=== PATIENT | female | born 1995 ===

== ENCOUNTER 2020-04-22 09:49 | Inpatient (IN) | payer OTHER ==
[2020-04-22] MEDS ORDERED: ELECTROLYTE-148 SOLN 1,000 ML IV SCH (10:15)
[2020-04-22] MEDS ORDERED: CITRIC ACID/SODIUM CITRATE 30 ML UNIT-DOSE CUP PO ONE (10:34)
[2020-04-22 10:47] LABS: BASO % 0.2 % (0-2.0); EOS % 0.5 % (0-4.5); HEMATOCRIT 34.7 % (32.4-45.2); HEMOGLOBIN 11.6 GM/dL (10.7-15.3); LYMPH % 20.4 % (8-40); MCH 29.8 pg (25.7-33.7); MCHC 33.3 g/dl (32.0-36.0); MEAN CELL VOLUME 89.3 fl (80-96); MEAN PLT VOLUME 7.5 fl (7.5-11.1); MONO % 8.2 % (3.8-10.2); NEUT % 70.7 % (42.8-82.8); PLATELET COUNT 233 K/MM3 (134-434); RBC 3.88 M/mm3 (3.60-5.2); RDW 14.2 % (11.6-15.6); WHITE BLOOD COUNT 6.5 K/mm3 (4.0-10.0)
[2020-04-22 10:53] LABS: INR 0.87 (0.83-1.09); PROTHROMBIN TIME (PATIENT) 10.2 SEC (9.7-13.0)
[2020-04-22 10:55] LABS: ACTIVATED PTT 27.7 SECONDS (25.2-36.5)
--- NOTE | 2020-04-22 11:04 | HP ---
Past Medical History - Admission Chief Complaint: admited fpor repeat cessarian section at 39+3 w gestation - Past Medical History ...: 3 ...Para: 1 ...Living Children: 1 ... Weeks Gestation by Dates: 39 ...EDC by Dates: 04/26/20 Additional OB History: pervious Cessarian sectionx 1 in [facility] , no records available - Past Surgical History Hx Myomectomy: No Hx Transabdominal Cerclage: No Additional Surgical History: Cessarian section x1 - Smoking History Smoking history: Never smoked - Alcohol/Substance Use Hx Alcohol Use: No History of Substance Use: reports: None Home Medications - Allergies Allergies/Adverse Reactions: Allergies Allergy/AdvReac Type Severity Reaction Status Date / Time No Known Allergies Allergy Verified 04/22/20 10:13 - Home Medications Home Medications: Ambulatory Orders Pnv No.95/Ferrous Fum/Folic AC [ Formula] 1 each PO DAILY 04/22/20 Physical Exam - Maternity - Labs Lab Results: CBC, BMP 04/22/20 10:10
[2020-04-22 11:08] VITALS: BMI 29.0
--- NOTE | 2020-04-22 11:09 | PN ---
Progress Note (short form) - Note Progress Note: 25 y old p1 admited at 39+3 w gestation for repeat C/s EDC 04/26 +FM . no vaginal bleeding , no ROM . EFW 2900 GM . FHR 140/ min + MOD. variability n. No CTX . risk and benefit of repeat C/S explained , consent obtained via chief internal auditor .including , but not limited to infection , bleeding , injury to pelvic and /or abdominal organs .all Pt,s questions were answered
[2020-04-22 11:11] LABS: BLOOD UREA NITROGEN 7.1 mg/dL (7-18); CALCIUM 8.5 mg/dL (8.5-10.1); CREATININE 0.4 mg/dL (0.55-1.3); POTASSIUM 3.9 mmol/L (3.5-5.1)
[2020-04-22] MEDS ORDERED: morphine SULFATE/PF 0.5 MG/ML (2cc Syringe - QUVA) ONE (11:47)
[2020-04-22] MEDS ORDERED: IBUPROFEN 800 MG/8 ML IJ IVPB PRN (13:04)
[2020-04-22] MEDS ORDERED: oxyCODONE HCL 5 MG TABLET PO PRN (13:04)
[2020-04-22] MEDS ORDERED: BENZOCAINE 28 GM HEMORRHOIDAL OINTMENT RC PRN (13:04)
[2020-04-22] MEDS ORDERED: diphenhydrAMINE HCL 25 MG CAPSULE (FP) PO PRN (13:04)
[2020-04-22] MEDS ORDERED: WITCH HAZEL 50% (TUCKS) 40 PAD/JAR PAD TP PRN (13:04)
[2020-04-22] MEDS ORDERED: METHYLERGONOVINE MALEATE 0.2 MG/1 ML AMP IM PRN (13:04)
[2020-04-22] MEDS ORDERED: BENZOCAINE 20% 57 GM BOTTLE TP PRN (13:04)
[2020-04-22 13:12] LABS: CORD HCO3 22.3 mmHg (20-29); CORD PCO2 54.8 mmHg (30-78); CORD pH 7.228 (7.14-7.44)
[2020-04-22 13:15] LABS: CORD BASE EXCESS -6.4 mmol/L (0-2); CORD PCO2 42.7 mmHg (30-78); CORD pH 7.288 (7.14-7.44)
[2020-04-22] MEDS ORDERED: DEXTROSE 5%-LACTATED RINGERS 1,000 ML IV SCH (13:15)
[2020-04-22] MEDS ORDERED: OXYTOCIN 20 UNITS in 0.9% NS 20 UNIT/1,000 ML INFUS.BAG IV SCH (13:15)
--- NOTE | 2020-04-22 13:19 | OP ---
Operative Note - Note: Operative Date: 04/22/20 Pre-Operative Diagnosis: p1 at 39+3 w gesttion for repeat LTCS Operation: Repeat LTCS Findings: full term female 9/9 at 1 and 5 min in ROT position . 9/9 at 1 and 5 min Ovary and tubes are grossely NL Post-Operative Diagnosis: Same as Pre-op Surgeon: Deena Ty Anesthesia: Spinal Estimated Blood Loss (mls): 600 Drains & Tubes with Location: wharton 100 ML Operative Report Dictated: Yes
--- NOTE | 2020-04-22 13:51 | OP ---
DATE OF OPERATION: 04/22/2020 PREOPERATIVE DIAGNOSIS: Patient is 25 years old, 3, para 1 admitted at 39 +3 days for repeat lower transverse section. Patient had previous in [place]. No records available. Options discussed with the patient and patient opted for repeat section. Procedure explained. The consent was obtained. Risks and benefits explained. Risk of possible bleeding, infection, perforation, injury to bowel or other pelvic organs explained to the patient. Patient understood the risks through the child attendant and signed the consent and witnessed. PROCEDURE: Repeat lower transverse section. SURGEON: Deena Ty MD HALL WORKER: JUANCARLOS Stock ESTIMATED BLOOD LOSS: 600 mL. URINE OUTPUT: 100 mL clear. IV FLUID GIVEN: Lactated Ringer's 1200 mL. ANESTHESIA: Spinal anesthesia. PREOPERATIVE ANTIBIOTIC: Patient received a gram of Ancef preoperatively. PROCEDURE: Patient was taken to the operating room. In the dorsal position under spinal anesthesia skin Pfannenstiel incision made with a scalpel, carried to underlying layer of fascia. Fascia incised in the midline, extended bilaterally using Bird scissors. The fascia was from underlying layer of muscle superior and inferiorly using Bird scissors. The muscle and the peritoneum were entered bluntly. Lower uterine segment was identified. Uterovesical peritoneum was incised and extended bilaterally. Lower uterine segment was incised and extended bilaterally. Membrane ruptured with clear fluid. The head and nose were delivered atraumatically. Suctioning of the mouth and nose was done followed by delivery of the anterior shoulder, posterior shoulder, whole body. The cord was clamped and cut and the was handed to the awaiting landscape drafter. Following that, cord gas was obtained. Cord blood was obtained. The placenta was delivered complete, intact, spontaneous. So, the findings are full-term female , 9 at one minute and 9 at five minutes in right occipital transverse position. Ovary and tubes bilateral grossly normal. The placenta intact complete was noted too, and the was handed to the awaiting landscape drafter and transferred to the nursery. The uterine cavity was cleared from all the debris and the bleeding. The lower uterine segment was closed in 2 layers using 0 Vicryl continuous locked fashion. The peritoneum and gutter were cleared from all the debris and bleeding. The fascia was closed in continuous locked fashion using CTX Vicryl. The subcutaneous tissue was closed as interrupted layer using 2-0 plain. The skin was closed using naveen. Patient tolerated the procedure well, transferred to recovery room in stable condition. DEENA TY MD [id number]
[2020-04-22] MEDS ORDERED: ONDANSETRON 4 MG/2 ML VIAL IVPUSH PRN (17:43)
[2020-04-22] MEDS ORDERED: CEFAZOLIN 1 GM in DEXTROSE 5%-WATER - 50 ML IVPB SCH (18:00)
[2020-04-22] MEDS: CEFAZOLIN 1 GM/D5W 1 GM/50 ML BAG IVPB SCH (18:25)
[2020-04-23] MEDS: CEFAZOLIN 1 GM/D5W 1 GM/50 ML BAG IVPB SCH (02:23)
[2020-04-23 08:35] LABS: BASO % 0.2 % (0-2.0); EOS % 0.2 % (0-4.5); HEMATOCRIT 34.1 % (32.4-45.2); HEMOGLOBIN 11.2 GM/dL (10.7-15.3); LYMPH % 11.3 % (8-40); MCH 29.9 pg (25.7-33.7); MCHC 32.8 g/dl (32.0-36.0); MEAN CELL VOLUME 91.2 fl (80-96); MEAN PLT VOLUME 7.8 fl (7.5-11.1); MONO % 7.7 % (3.8-10.2); NEUT % 80.6 % (42.8-82.8); PLATELET COUNT 210 K/MM3 (134-434); RBC 3.74 M/mm3 (3.60-5.2); RDW 14.3 % (11.6-15.6); WHITE BLOOD COUNT 9.9 K/mm3 (4.0-10.0)
--- NOTE | 2020-04-23 11:07 | PN ---
Progress Note (short form) - Note Progress Note: Anesthesia postop note 25 y/o F s/p spinal anesthesia/duramorph for section POD#1, vss, aaox3, pain well controlled, sensory motor intact distally. No anesthesia complications.
[2020-04-23] MEDS ORDERED: BISACODYL 10 MG SUPP.RECT PR PRN (13:04)
--- NOTE | 2020-04-23 13:43 | PN ---
Progress Note (short form) - Note Progress Note: POD#1 afebrile, no vaginal bleeding , mild lochia , tolerated diet well ,no nausea or vomiting . ambulate incision intact , no bleeding , no discharge , no abdominal distension , mild lochia willcont. pain management . ambulate wound care instructions given .
[2020-04-23] MEDS: IBUPROFEN 600 MG TABLET (FP) PO PRN (20:03)
[2020-04-23] MEDS: oxyCODONE HCL 5 MG TABLET PO PRN (20:04)
[2020-04-23] MEDS: SIMETHICONE 80 MG TAB.CHEW (FP) PO PRN (20:07)
[2020-04-24] MEDS: oxyCODONE HCL 5 MG TABLET PO PRN ×2 (10:05→18:24)
[2020-04-24] MEDS: IBUPROFEN 600 MG TABLET (FP) PO PRN ×2 (10:06→18:23)
--- NOTE | 2020-04-24 20:01 | PN ---
Progress Note (short form) - Note Progress Note: POD# 2 s/P repeat doing well, Patient seen and examined at bed side doing well, afebrile, no vaginal bleeding , mild lochia , tolerated diet well ,no nausea or vomiting . ambulate, +ve flatus & BM, voiding without difficulty PE: AAOx3 n NAD HEENT: NC/AT, Suple Chest: CTA, S1/S2 Abd: soft, NT, ND, +ve BS Wound: D/C/I, naveen in place, no signs of infection VE: mild lochia EXT: Negative Christine's BL A/P POD# 2 s/P repeat doing well, Stable willcont. pain management . OOB ambulate wound care instructions given . DC home tomorrow if con. to be stable. F/U in [facility] [place] in one week for wound check and in 6 weeks for PP check.
--- NOTE | 2020-04-24 20:05 | DS ---
Physical Examination Vital Signs: Vital Signs Temperature 98.0 F 04/24/20 10:00 Pulse Rate 99 H 04/24/20 10:00 Respiratory Rate 18 04/24/20 10:00 Blood Pressure 117/80 04/24/20 10:00 O2 Sat by Pulse Oximetry (%) 98 04/23/20 14:00 Constitutional: Yes: Well Nourished, No Distress Eyes: Yes: WNL HENT: Yes: WNL Neck: Yes: WNL Cardiovascular: Yes: WNL Respiratory: Yes: WNL Gastrointestinal: Yes: WNL ...Rectal Exam: Yes: WNL, Deferred Renal/: Yes: WNL Breast(s): Yes: WNL Musculoskeletal: Yes: WNL Extremities: Yes: WNL Edema: No Peripheral Pulses WNL: Yes Wound/Incision: Yes: Clean/Dry, Well Approximated, Naveen Intact Neurological: Yes: WNL ...Motor Strength: WNL Psychiatric: Yes: WNL Labs: CBC, BMP 04/23/20 07:40 04/22/20 10:10 Discharge Summary Problems reviewed: Yes Reason For Visit: Condition: Stable - Instructions Disposition: HOME - Home Medications Comprehensive Discharge Medication List: Ambulatory Orders Pnv No.95/Ferrous Fum/Folic AC [ Formula] 1 each PO DAILY 04/22/20 POD# 2 s/P repeat doing well, Patient seen and examined at bed side doing well, afebrile, no vaginal bleeding , mild lochia , tolerated diet well ,no nausea or vomiting . ambulate, +ve flatus & BM, voiding without difficulty PE: AAOx3 n NAD HEENT: NC/AT, Suple Chest: CTA, S1/S2 Abd: soft, NT, ND, +ve BS Wound: D/C/I, naveen in place, no signs of infection VE: mild lochia EXT: Negative Christine's BL A/P POD# 2 s/P repeat doing well, Stable willcont. pain management . OOB ambulate wound care instructions given . DC home tomorrow if con. to be stable. F/U in [facility] [place] in one week for wound check and in 6 weeks for PP check. Prescription Drug Monitoring Program (I-STOP) results: I-STOP reviewed and no issues identified
--- NOTE | 2020-04-24 20:08 | DS ---
Physical Exam-CODING [facility] Vital Signs: Vital Signs Temperature 98.0 F 04/24/20 10:00 Pulse Rate 99 H 04/24/20 10:00 Respiratory Rate 18 04/24/20 10:00 Blood Pressure 117/80 04/24/20 10:00 O2 Sat by Pulse Oximetry (%) 98 04/23/20 14:00 Constitutional: Yes: Well Nourished Eyes: Yes: WNL HENT: Yes: WNL Neck: Yes: WNL Cardiovascular: Yes: WNL Respiratory: Yes: WNL Gastrointestinal: Yes: WNL ...Rectal Exam: Yes: Deferred Renal/: Yes: WNL Pelvis: Yes: WNL External Genitalia: Yes: Normal Vaginal Exam: Yes: Normal Uterus: Yes: Firm ....Post : Yes: Uterus firm, Uterus non-tender Breast(s): Yes: WNL Musculoskeletal: Yes: WNL Extremities: Yes: WNL Edema: No Integumentary: Yes: WNL Wound/Incision: Yes: Clean/Dry, Well Approximated, Mars Intact Neurological: Yes: WNL ...Motor Strength: WNL Psychiatric: Yes: WNL Labs: CBC, BMP 04/23/20 07:40 04/22/20 10:10 Delivery - Delivery Type of Anesthesia: Spinal Episiotomy/Laceration: None EBL (cc): 600 Delivery, Single - Stages of Labor Date of Delivery: 04/22/20 Time of Delivery: 12:15 Time Placenta Delivered: 12:16 - Condition of Distance Education Director/Food Service Hotel Runner Present: Yes Name: Brooke Quinteros Gender: Female Weight: 3.175 kg Position: Right, OT Total Hours ROM (Hrs/Mins): 3mins - 1 Minute Total Score: 9 5 Minutes Total Score: 9 - [place] Feeding Plan Initial Plan: Elected not to breastfeed exclusively throughout hospitalization Discharge Summary Problems reviewed: Yes Reason For Visit: Condition: Stable - Instructions Disposition: HOME - Home Medications Comprehensive Discharge Medication List: Ambulatory Orders Pnv No.95/Ferrous Fum/Folic AC [ Formula] 1 each PO DAILY 04/22/20
[2020-04-24] MEDS ORDERED: SENNOSIDES/DOCUSATE COMBO (SENNA PLUS) TABLET (UD) PO PRN (22:00)
[2020-04-25 08:35] LABS: BASO % 0.5 % (0-2.0); EOS % 1.3 % (0-4.5); HEMATOCRIT 34.3 % (32.4-45.2); HEMOGLOBIN 11.6 GM/dL (10.7-15.3); LYMPH % 16.7 % (8-40); MCH 30.9 pg (25.7-33.7); MCHC 33.8 g/dl (32.0-36.0); MEAN CELL VOLUME 91.4 fl (80-96); MEAN PLT VOLUME 7.5 fl (7.5-11.1); MONO % 5.8 % (3.8-10.2); NEUT % 75.7 % (42.8-82.8); PLATELET COUNT 237 K/MM3 (134-434); RBC 3.76 M/mm3 (3.60-5.2); RDW 14.4 % (11.6-15.6); WHITE BLOOD COUNT 7.5 K/mm3 (4.0-10.0)
[2020-04-25] MEDS: IBUPROFEN 600 MG TABLET (FP) PO PRN (10:33)
[2020-04-25] MEDS: SIMETHICONE 80 MG TAB.CHEW (FP) PO PRN (10:34)
[2020-04-25 15:52] VITALS: BP 108/74; PULSE 104; TEMP 98.1
--- NOTE | 2020-04-28 17:08 | PATH ---
Surgical Pathology Report Patient Name: DONY JOYA [facility]. Rec. #: [id number] /Age/Gender: 1995 (Age: 25) / F Account: [id number] Location: [facility] OBS/OCCUPATIONAL HEALTH NURSE Taken: 04/22/2020 Received: 04/23/2020 Reported: 04/28/2020 Physicians: MARY JO BANDA Specimen(s) Received PLACENTA Clinical History , 39.3 weeks repeat Final Diagnosis PLACENTA, SECTION: 409 G THIRD TRIMESTER PLACENTA WITH TRIVASCULAR UMBILICAL CORD AND UNREMARKABLE PLACENTAL MEMBRANES. Electronically Signed Myrtle Paul M.D. Gross Description The specimen is received fresh labeled placenta and is a 409 gram, 19.0 x 14.0 x 2.3 cm. placenta with attached membranes and umbilical cord. The attached membranes are bryan, translucent with focal opacities and insert marginally. The umbilical cord measures 14 cm. in length and averages 1.1 cm. in diameter. The cord inserts eccentrically, 4.5 cm. to the nearest margin. No true knots or strictures are identified. Cut surface of the umbilical cord reveals 3 vessels. The surface is lee-blue with minimal fibrin deposition and appropriate caliber vessels. The maternal surface is red-brown with focal defects. Sectioning reveals red-brown, spongy parenchyma with mild calcifications. No lesions are identified. Survey Analyst sections are submitted in three cassettes as follows: 1- membrane rolls and umbilical cord; 2-3- full thickness sections of placenta. [facility]
== END 2020-04-25 15:20 | disposition home or self-care (01) | DRG 540 ==
LOC: JLDR 09:49 → J3W 14:25
PROVIDERS: ADMIT Family Medicine; ATTEND Family Medicine
PROC: 10D00Z1 Extraction of Products of Conception, Low, Open Approach (ICD-10-PCS; principal; 2020-04-22)
DX: O82 Encounter for cesarean delivery without indication (principal); O34.211 Maternal care for low transverse scar from previous cesarean delivery; Z3A.39 39 weeks gestation of pregnancy; Z37.0 Single live birth
CPT/HCPCS: 36415; 36600; 80048; 82803; 85025; 85461; 85610; 85730; 86780; 86850; 86870; 86900; 86901; 86902; 86999; 87389; 88307-TC

== ENCOUNTER 2024-02-17 15:45 | Inpatient (IN) | payer OTHER ==
[2024-02-17 17:46] VITALS: BMI 33.3
[2024-02-17 18:50] LABS: BASO % 0.2 % (0-2.0); EOS % 0.7 % (0-4.5); HEMATOCRIT 32.8 % (32.4-45.2); HEMOGLOBIN 11.2 GM/dL (10.7-15.3); LYMPH % 18.4 % (8-40); MCHC 34.2 g/dl (32.0-36.0); MEAN CELL VOLUME 87.7 fl (80-96); NEUT % 72.7 % (42.8-82.8); PLATELET COUNT 280 10^3/uL (134-434); RBC 3.73 M/mm3 (3.60-5.2); RDW 14.6 % (11.6-15.6); WHITE BLOOD COUNT 7.6 K/mm3 (4.0-10.0)
[2024-02-17 18:57] LABS: INR 0.94 (0.83-1.09); POTASSIUM 3.9 mmol/L (3.5-5.1); PROTHROMBIN TIME (PATIENT) 10.6 SEC (9.7-13.0)
[2024-02-17 18:59] LABS: CALCIUM 8.1 mg/dL (8.5-10.1)
[2024-02-17 19:00] LABS: ACTIVATED PTT 26.6 SECONDS (25.2-36.5)
[2024-02-17 19:02] LABS: CREATININE 0.4 mg/dL (0.55-1.3)
[2024-02-17 19:53] LABS: HIV INTERPRETATION NEGATIVE (NEGATIVE)
[2024-02-17 20:10] LABS: PHENCYCLIDINE,URINE NEGATIVE (NEGATIVE); URINE BARBITURATES NEGATIVE (NEGATIVE)
[2024-02-17 20:11] LABS: COCAINE, UR NEGATIVE (NEGATIVE); METHADONE, UR NEGATIVE (NEGATIVE); OPIATES, URI NEGATIVE (NEGATIVE); URINE AMPHETAMINES NEGATIVE (NEGATIVE); URINE BENZODIAZEPINES NEGATIVE (NEGATIVE)
[2024-02-17] MEDS ORDERED: morphine SULFATE/PF 1 MG/2 ML (2cc Syringe - QUVA) ONE (20:20)
[2024-02-17] MEDS ORDERED: FENTANYL CITRATE/PF 50 MCG/ML VIAL ONE (20:20)
[2024-02-17] MEDS ORDERED: AZITHROMYCIN IVPB 500 MG/250 ML BAG IVPB ONE (20:41)
[2024-02-17] MEDS ORDERED: OXYTOCIN 10 UNITS/ML VIAL ONE (20:53)
[2024-02-17] MEDS ORDERED: KETOROLAC TROMETHAMINE 30 MG/1 ML VIAL ONE (20:53)
[2024-02-17] MEDS ORDERED: ceFAZolin SODIUM 1 GM VIAL ONE (20:53)
[2024-02-17] MEDS ORDERED: DEXAMETHASONE SOD PHOSPHATE 4 MG/1 ML VIAL ONE (20:53)
[2024-02-17] MEDS ORDERED: METOCLOPRAMIDE HCL INJECTION 10 MG/2 ML VIAL ONE (20:53)
[2024-02-17] MEDS ORDERED: ONDANSETRON 4 MG/2 ML VIAL ONE (20:53)
[2024-02-17] MEDS ORDERED: METHYLERGONOVINE MALEATE 0.2 MG/1 ML AMP IM PRN (21:48)
[2024-02-17] MEDS ORDERED: IBUPROFEN 800 MG/8 ML IJ IVPB PRN (21:49)
[2024-02-17] MEDS: OXYTOCIN 20 UNITS in 0.9% NS 20 UNIT/1,000 ML INFUS.BAG IV SCH (23:20)
[2024-02-17] MEDS ORDERED: OXYTOCIN 20 UNITS in 0.9% NS 20 UNIT/1,000 ML INFUS.BAG IV ONE (23:20)
[2024-02-17 23:26] VITALS: RESP 18
[2024-02-18] MEDS: ELECTROLYTE-148 SOLN 1,000 ML IV SCH (00:47)
[2024-02-18] MEDS ORDERED: ONDANSETRON 4 MG/2 ML VIAL IVPUSH PRN (01:10)
[2024-02-18 08:51] LABS: BASO % 0.2 % (0-2.0); HEMATOCRIT 32.2 % (32.4-45.2); HEMOGLOBIN 11.1 GM/dL (10.7-15.3); LYMPH % 9.8 % (8-40); MCH 29.9 pg (25.7-33.7); MCHC 34.3 g/dl (32.0-36.0); MEAN CELL VOLUME 87.2 fl (80-96); MEAN PLT VOLUME 7.1 fl (7.5-11.1); MONO % 4.5 % (3.8-10.2); NEUT % 85.5 % (42.8-82.8); PLATELET COUNT 256 10^3/uL (134-434); RDW 14.3 % (11.6-15.6); WHITE BLOOD COUNT 13.1 K/mm3 (4.0-10.0)
[2024-02-18] MEDS ORDERED: oxyCODONE HCL 5 MG TABLET PO PRN (09:48)
[2024-02-18] MEDS ORDERED: BISACODYL 10 MG SUPP.RECT RC PRN (21:48)
[2024-02-19] MEDS: IBUPROFEN 600 MG TABLET (FP) PO PRN (00:05)
[2024-02-19] MEDS: SIMETHICONE 80 MG TAB.CHEW (FP) PO PRN (00:08)
[2024-02-19] MEDS: ACETAMINOPHEN 325 MG TABLET (FP) PO PRN (15:12)
[2024-02-19] MEDS: BENZOCAINE/MENTH/CETYLPYRD CL 1 EACH LOZENGE MM PRN (18:09)
[2024-02-19] MEDS: guaiFENesin/D-METHORPHAN HB 10 ML UNIT-DOSE CUPS PO PRN (20:35)
[2024-02-20 08:17] LABS: BASO % 0.4 % (0-2.0); EOS % 1.9 % (0-4.5); HEMOGLOBIN 11.2 GM/dL (10.7-15.3); LYMPH % 29.9 % (8-40); MCH 29.9 pg (25.7-33.7); MCHC 34.1 g/dl (32.0-36.0); MEAN CELL VOLUME 87.8 fl (80-96); MEAN PLT VOLUME 7.4 fl (7.5-11.1); MONO % 9.1 % (3.8-10.2); NEUT % 58.7 % (42.8-82.8); PLATELET COUNT 293 10^3/uL (134-434); RBC 3.75 M/mm3 (3.60-5.2); RDW 14.4 % (11.6-15.6); WHITE BLOOD COUNT 8.5 K/mm3 (4.0-10.0)
[2024-02-20 09:37] VITALS: BP 118/64; PULSE 90; TEMP 97.8
== END 2024-02-20 15:55 | disposition home or self-care (01) | DRG 540 ==
LOC: JDEL 15:45 → JLDR 17:20 → J3W 02-18 00:30
PROVIDERS: ADMIT Obstetrics & Gynecology; ATTEND Family Medicine
PROC: 10D00Z1 Extraction of Products of Conception, Low, Open Approach (ICD-10-PCS; principal; 2024-02-17)
PROC: 3E0334Z Introduction of Serum, Toxoid and Vaccine into Peripheral Vein, Percutaneous Approach (ICD-10-PCS; 2024-02-18)
DX: O34.211 Maternal care for low transverse scar from previous cesarean delivery (principal); N85.8 Other specified noninflammatory disorders of uterus; O36.0930 Maternal care for other rhesus isoimmunization, third trimester, not applicable or unspecified; Z3A.39 39 weeks gestation of pregnancy; Z37.0 Single live birth
CPT/HCPCS: 36415; 59409; 80048; 80307; 85025; 85461; 85610; 85730; 86780; 86803; 86850; 86900; 86901; 86922; 87389; 88307-TC; 94010; 96372; J2790